=== PATIENT | male | born 1985 | race Caucasian/White ===

== ENCOUNTER 2019-09-04 18:57 | Emergency (ER) | payer MEDICAID, OTHER ==
[~2019-09-04] VITALS: Ht 182.9 cm; Wt 81.6 kg
[2019-09-04] MEDS ORDERED: CALCIUM CHL(10%) 100MG/ML 10ML VIAL IV ONE (18:58)
[2019-09-04] MEDS ORDERED: DEXTROSE (50%) 50ML SYRG IV ONE (18:58)
[2019-09-04] MEDS ORDERED: SODIUM BICARBONATE 8.4 % INJ 50ML VIAL IV ONE (18:58)
[2019-09-04] MEDS ORDERED: NALOXONE HCL 1MG/ML 2ML SYRINGE IV ONE (18:58)
[2019-09-04] MEDS ORDERED: EPINEPHrine HCL 1 MG/10 ML SYRG IV ONE (18:58)
[2019-09-04] MEDS ORDERED: SODIUM BICARBONATE 8.4% INJ 50ML SYRINGE ONE (19:10)
[2019-09-04] MEDS ORDERED: DEXTROSE 50% SYRINGE 50 ML IV ONE (19:10)
[2019-09-04] MEDS ORDERED: NALOXONE HCL 1MG/ML 2ML SYRINGE ONE (19:18)
== END 2019-09-05 05:45 ==
LOC: ER 18:57
DX: I46.9 Cardiac arrest, cause unspecified (principal); T40.1X1A Poisoning by heroin, accidental (unintentional), initial encounter; F17.210 Nicotine dependence, cigarettes, uncomplicated; R41.82 Altered mental status, unspecified; Y92.89 Other specified places as the place of occurrence of the external cause
CPT/HCPCS: 31500; 92950; 99285; J0171; J2310; J7042